=== PATIENT | male | born 1985 | race Caucasian/White ===

== ENCOUNTER 2018-05-07 11:15 | Emergency (ER) | payer OTHER ==
[~2018-05-07] VITALS: Ht 182.9 cm; Wt 65.8 kg
[~2018-05-07 11:15] MED LIST: Albuterol17 G1 INH; Amoxicillin500 MG PO; BENTYL; BENTYL10 MG PO; DICY20 PO; DOXY100T53 PO; IBUP600 PO; LORA1 PO; Naprosyn500 MG PO; Norco 5-325 Ta1 EACH PO; ONDA4ODT MM; PENVK500 PO; TRAM50 PO; Ultram50 MG PO; Veetids 500500 MG PO
[2018-05-07] MEDS ORDERED: PENVK500 PO (11:39)
== END 2018-05-07 11:46 | disposition home or self-care (01) ==
LOC: ER 11:15
DX: K02.9 Dental caries, unspecified (principal); Z79.899 Other long term (current) drug therapy; Z87.891 Personal history of nicotine dependence
CPT/HCPCS: 64400; 99282-25